=== PATIENT | male | born 1970 | race Caucasian/White ===

== ENCOUNTER 2016-07-17 16:06 | Emergency (ER) | payer OTHER ==
[2016-07-17 17:19] LABS: BASO # 0.1 K/uL (0.0-0.2); BASO % 1.1 % (0.0-2.0); EOS # 0.2 K/uL (0.0-0.7); EOS % 3.6 % (0.0-4.0); HEMATOCRIT 46.2 % (35.0-51.0); LYMPH # 1.6 K/uL (1.0-4.3); LYMPH % 27.8 % (20.0-40.0); MEAN CELL VOLUME 91.4 fL (80.0-94.0); MEAN CORPUSCULAR HEMOGLOBIN 30.8 pg (27.0-31.0); MEAN CORPUSCULAR HGB CONC 33.7 g/dL (33.0-37.0); MEAN PLATELET VOLUME 7.7 fL (7.2-11.7); MONO # 0.7 K/uL (0.0-0.8); MONO % 11.9 % (0.0-10.0); RED CELL DISTRIBUTION WIDTH 13.5 % (11.5-14.5); WHITE BLOOD COUNT 5.6 K/uL (4.8-10.8)
[2016-07-17 17:23] LABS: RBC URINE 6 /hpf (0-3); URINE BACTERIA RARE (<OCC); URINE BILIRUBIN NEGATIVE (NEGATIVE); URINE BLOOD 1+ (NEGATIVE); URINE COLOR Yellow (YELLOW); URINE GLUCOSE (UA) NORMAL (Normal); URINE KETONE NEGATIVE (NEGATIVE); URINE LEUKOCYTE ESTERASE NEG Leu/uL (Negative); URINE PROTEIN 1+ mg/dL (NEGATIVE); URINE UROBILINOGEN NORMAL mg/dL (0.2-1.0); WBC URINE 2 /hpf (0-5)
[2016-07-17 17:31] LABS: CHLORIDE 94 mmol/L (98-107); SODIUM 137 mmol/L (132-148)
[2016-07-17 17:32] LABS: POTASSIUM 3.8 mmol/L (3.6-5.2)
[2016-07-17 17:34] LABS: ALB/GLOB RATIO 1.2 (1.0-2.1); ALKALINE PHOSPHATASE 58 U/L (38-126); ALT/SGPT 54 U/L (21-72); AST/SGOT 36 U/L (17-59); BILIRUBIN,TOTAL 0.7 mg/dL (0.2-1.3); BLOOD UREA NITROGEN 17 mg/dL (9-20); CARBON DIOXIDE 29 mmol/L (22-30); GFR AFRICAN-AMERICAN > 60; GLUCOSE,RANDOM 101 mg/dL (75-110); TOTAL PROTEIN 8.4 g/dL (6.3-8.3)
--- NOTE | 2016-07-17 17:36 | C.PDOC ---
History Of Present Illness Patient is a 46 year old male who presents to the ER with a complaint of nausea , vomiting, and diarrhea since 22:00 Saturday night. Patient states he has had multiple episodes since then. Patient reports having only diarrhea today and being able to tolerate small amount of fluids PO. Patient notes having sick contact with a roommate who had similar symptoms. Denies any abdominal pain, fever, or chills. Time Seen by Provider: 07/17/16 17:21 Chief Complaint (Nursing): Abdominal Pain History/Exam Limitations: no limitations Onset/Duration Of Symptoms: Days (since saturday night at 22:00) Current Symptoms Are (Timing): Still Present Context: Other (Sick contact with roommate) Severity: Mild Associated Symptoms: Nausea, Vomiting, Diarrhea. denies: Fever, Chills Past Medical History Reviewed: Historical Data, Nursing Documentation, Vital Signs Vital Signs: Last Vital Signs Temp 97.3 F L 07/17/16 16:17 Pulse 77 07/17/16 16:17 Resp 16 07/17/16 16:17 BP 105/77 07/17/16 16:17 Pulse Ox 95 07/17/16 18:49 Family History: States: Unknown Family Hx - Social History Hx Alcohol Use: No Hx Substance Use: No - Immunization History Hx Tetanus Toxoid Vaccination: No Hx Influenza Vaccination: No Hx Pneumococcal Vaccination: No Review Of Systems Constitutional: Negative for: Fever, Chills Gastrointestinal: Positive for: Nausea, Vomiting, Diarrhea. Negative for: Abdominal Pain Physical Exam - Physical Exam Appears: Well, Non-toxic Skin: Normal Color, Warm, Dry Head: Atraumatic, Normacephalic Oral Mucosa: Moist Chest: Symmetrical Cardiovascular: Rhythm Regular Respiratory: Normal Breath Sounds, No Rales, No Rhonchi, No Wheezing Gastrointestinal/Abdominal: Soft, No Tenderness Neurological/Psych: Oriented x3, Normal Speech, Normal Cognition ED Course And Treatment - Laboratory Results Result Diagrams: 07/17/16 17:14 07/17/16 17:14 O2 Sat by Pulse Oximetry: 95 (Room air) Pulse Ox Interpretation: Normal Progress Note: Pepcid IVP, Reglan IVPB, and IV fluids administered. Medical Decision Making Medical Decision Making: pt feeling much better, abdoomen soft, nod, nt. pt is thirsty, po challenge of mark al given. will d/c Disposition - Disposition Referrals: [facility] at [facility] [Outside] Disposition: HOME/ ROUTINE Disposition Time: 18:52 Condition: IMPROVED Additional Instructions: Drink increased fluids- water., tea, gatorade. Follow BRAT diet for 1-2 days- banana, rice, applesauce. Follow up with your doctor or in clinic in a few days. Take medicaitons as prescribed. Return to ER for any worsening symptoms. Prescriptions: Famotidine [Pepcid] 20 mg PO DAILY #14 tab Instructions: Gastroenteritis (ED) Forms: General Discharge Instructions, Work Excuse - Clinical Impression Clinical Impression: Gastroenteritis - Scribe Statement The provider has reviewed the documentation as recorded by the Scribe Toby Navarro All medical record entries made by the Scribe were at my direction and personally dictated by me. I have reviewed the chart and agree that the record accurately reflects my personal performance of the history, physical exam, medical decision making, and the department course for this patient. I have also personally directed, reviewed, and agree with the discharge instructions and disposition.
[2016-07-17] MEDS ORDERED: Sodium Chloride 0.9% 1,000 ML IV ONE (17:37)
[2016-07-17] MEDS ORDERED: Sodium Chloride 0.9% 1,000 ML ONE (17:53)
[2016-07-17 19:05] VITALS: BP 97/64; PULSE 74; RESP 18; TEMP 97.4; O2SAT 98
== END 2016-07-17 19:13 | disposition home or self-care (01) ==
LOC: C.ER 16:06
DX: K52.9 Noninfective gastroenteritis and colitis, unspecified (principal)
CPT/HCPCS: 80053; 81001; 83690; 85025; 96361; 96374; 96375; 99285; J2765; J7040

== ENCOUNTER 2016-08-23 18:25 | Emergency (ER) | payer OTHER ==
[2016-08-23 18:32] VITALS: TEMP 97.5; O2SAT 99
--- NOTE | 2016-08-23 19:48 | C.PDOC ---
History Of Present Illness 46 y/o male c/o 3 day hx of dry cough, runny nose, headache (now resolved), no fever or chills, no cp or sob. no sick contacts. Time Seen by Provider: 08/23/16 19:28 Chief Complaint (Nursing): Cough, Cold, Congestion History Per: Patient History/Exam Limitations: no limitations Onset/Duration Of Symptoms: Days (3) Current Symptoms Are (Timing): Still Present Sick Contacts (Context): None Ear Symptoms: Bilateral: None Past Medical History Reviewed: Historical Data, Nursing Documentation, Vital Signs Vital Signs: Last Vital Signs Temp 97.5 F L 08/23/16 18:29 Pulse 90 08/23/16 18:29 Resp 18 08/23/16 18:29 BP 152/72 H 08/23/16 18:29 Pulse Ox 99 08/23/16 18:29 - Medical History PMH: No Chronic Diseases, Bronchitis Surgical History: No Surg Hx Family History: States: Unknown Family Hx - Social History Hx Tobacco Use: Yes Hx Alcohol Use: No Hx Substance Use: No - Immunization History Hx Tetanus Toxoid Vaccination: No Hx Influenza Vaccination: No Hx Pneumococcal Vaccination: No Review Of Systems Constitutional: Negative for: Fever, Chills ENT: Positive for: Nose Discharge, Nose Congestion. Negative for: Ear Pain, Ear Discharge, Throat Swelling Cardiovascular: Negative for: Chest Pain, Palpitations Respiratory: Positive for: Cough. Negative for: Shortness of Breath, Sputum Gastrointestinal: Negative for: Nausea, Vomiting, Abdominal Pain Physical Exam - Physical Exam Appears: Non-toxic, No Acute Distress Skin: Normal Color, Warm, Dry Head: Atraumatic, Normacephalic Eye(s): bilateral: Normal Inspection Ear(s): Left: Normal, Right: TM Obscured By Wax Nose: Discharge, Other (boggy mucosa) Oral Mucosa: Moist Tongue: Normal Appearing Lips: Normal Appearing Neck: Normal ROM Chest: Symmetrical, No Deformity, No Tenderness Cardiovascular: Rhythm Regular, No Murmur Respiratory: Normal Breath Sounds, No Accessory Muscle Use, No Rales, No Rhonchi , No Wheezing Neurological/Psych: Oriented x3, Normal Speech, Normal Cognition ED Course And Treatment O2 Sat by Pulse Oximetry: 99 Medical Decision Making Medical Decision Makin46 y/o male with seasonal allergy symptoms; will d/c with claritin and pmd/ clinic f/u Disposition Counseled Patient/Family Regarding: Diagnosis, Need For Followup, Rx Given - Disposition Referrals: [facility] at [facility] [Outside] Disposition: HOME/ ROUTINE Disposition Time: 19:52 Condition: GOOD Additional Instructions: FOllow up in medical clinic in a few days/ . Tylenol or Motrin for pain. Take Claritin daily. Prescriptions: Loratadine [Claritin] 10 mg PO DAILY #14 tab Instructions: Allergic Rhinitis (ED) Forms: General Discharge Instructions - Clinical Impression Clinical Impression: Seasonal allergies
[2016-08-23 20:04] VITALS: BP 128/72; PULSE 88; RESP 20
== END 2016-08-23 20:03 | disposition home or self-care (01) ==
LOC: C.ER 18:25
DX: J30.2 Other seasonal allergic rhinitis (principal)

== ENCOUNTER 2017-03-15 18:33 | Emergency (ER) | payer SELFPAY ==
[2017-03-15 19:27] VITALS: BP 104/68; PULSE 88; RESP 18; TEMP 97.9; O2SAT 98
--- NOTE | 2017-03-15 19:39 | C.PDOC ---
History Of Present Illness 47 year old male presents to ED with complaints of painful lump to right underarm for one week. The area has grown in size. Denies fever or drainage. Time Seen by Provider: 03/15/17 19:35 Chief Complaint (Nursing): Abnormal Skin Integrity History Per: Patient History/Exam Limitations: no limitations Onset/Duration Of Symptoms: Days Location Of Injury: Right: Arm (underarm lump) Quality Of Symptoms: Painful Past Medical History Reviewed: Historical Data, Nursing Documentation, Vital Signs Vital Signs: Last Vital Signs Temp 97.9 F 03/15/17 19:24 Pulse 88 03/15/17 19:24 Resp 18 03/15/17 19:24 BP 104/68 03/15/17 19:24 Pulse Ox 98 03/15/17 20:35 - Medical History PMH: Bronchitis Family History: States: Unknown Family Hx - Social History Hx Tobacco Use: Yes Hx Alcohol Use: Yes Hx Substance Use: No - Immunization History Hx Tetanus Toxoid Vaccination: Yes Hx Influenza Vaccination: No Hx Pneumococcal Vaccination: No Review Of Systems Except As Marked, All Systems Reviewed And Found Negative. Skin: Positive for: Other (lump to axilla) Physical Exam - Physical Exam Appears: Well, Non-toxic, No Acute Distress Skin: Warm, Dry, Other (tender 0.5x0.5cm erythematous indurated mass to right mid axilla, no fluctuance or drainage) Head: Atraumatic, Normacephalic Eye(s): bilateral: Normal Inspection Neck: Normal ROM Chest: Symmetrical Cardiovascular: Rhythm Regular, No Murmur Respiratory: Normal Breath Sounds, No Wheezing Extremity: Bilateral: Atraumatic, Normal Color And Temperature, Normal ROM Neurological/Psych: Oriented x3, Normal Speech ED Course And Treatment O2 Sat by Pulse Oximetry: 98 Medical Decision Making Medical Decision Making: patient with indurated small nodule to right axilla, area is not fluctuant and unable to I&D at this time. Recommend warm compress to area. Bactrim PO given. Disposition Counseled Patient/Family Regarding: Diagnosis, Need For Followup, Rx Given - Disposition Referrals: [facility]Outside[facility] Disposition: HOME/ ROUTINE Disposition Time: 19:39 Condition: STABLE Additional Instructions: Follow up with your primary medical doctor or clinic in 2-5 days for further evaluation. Take medications as prescribed. Return to the emergency department at any time if symptoms persist or worsen. Prescriptions: Sulfamethoxazole/Trimethoprim [Bactrim DS 800 mg-160 mg] 1 tab PO BID #14 tab Instructions: Furunculosis and Carbunculosis (ED) Forms: [email or web address] (Kiswahili), Work Excuse - POA Present On Arrival: None - Clinical Impression Clinical Impression: Axillary abscess
[2017-03-15] MEDS ORDERED: Tmp-Smz 800 mg-160 mg DS Tab PO STA (19:41)
[2017-03-15] MEDS ORDERED: Tmp-Smz 800 mg-160 mg DS Tab ONE (19:46)
== END 2017-03-15 19:52 | disposition home or self-care (01) ==
LOC: C.ER 18:33
DX: L02.411 Cutaneous abscess of right axilla (principal)

== ENCOUNTER 2017-05-28 10:28 | Emergency (ER) | payer SELFPAY ==
[2017-05-28 10:52] VITALS: TEMP 98.6
[2017-05-28] MEDS ORDERED: Albuterol-Ipratrop 3 mg / 0.5 (3 ml) UD IH STA (11:35)
[2017-05-28] MEDS ORDERED: Promethazine/Cod 6.25mg-10mg/5ml Syr UD PO STA (11:36)
[2017-05-28] MEDS ORDERED: Albuterol-Ipratrop 3 mg / 0.5 (3 ml) UD ONE (11:40)
[2017-05-28] MEDS ORDERED: Promethazine/Cod 6.25mg-10mg/5ml Syr UD ONE (11:43)
--- NOTE | 2017-05-28 11:50 | RAD ---
HISTORY: Cough COMPARISON: None available. TECHNIQUE: Chest PA and lateral FINDINGS: LUNGS: No focal consolidation. Please note that chest x-ray has limited sensitivity for the detection of pulmonary masses. PLEURA: No significant pleural effusion identified. No definite pneumothorax . CARDIOVASCULAR: The cardiomediastinal silhouette appears within normal limits of size. OSSEOUS STRUCTURES: No acute osseous abnormality identified. VISUALIZED UPPER ABDOMEN: Unremarkable. OTHER FINDINGS: None. IMPRESSION: No focal consolidation, significant pleural effusion, or definite pneumothorax identified.
--- NOTE | 2017-05-28 12:12 | C.PDOC ---
History Of Present Illness 47 year old male, with social history of smoking, presents to the ED for evaluation of cold symptoms associated with body aches, dizziness, and cough that is productive of yellow sputum. Patient reports experiencing mild shortness of breath last night. Otherwise, he denies high fever, chills, headache, chest pain, dyspnea, and wheezing. Time Seen by Provider: 05/28/17 11:22 Chief Complaint (Nursing): Flu-like Symptoms History Per: Patient History/Exam Limitations: no limitations Onset/Duration Of Symptoms: Hrs Current Symptoms Are (Timing): Still Present Associated Symptoms: Cough, Sputum (yellow). denies: Fever, Chills Additional History Per: Patient Past Medical History Reviewed: Historical Data, Nursing Documentation, Vital Signs Vital Signs: Last Vital Signs Temp 98.6 F 05/28/17 10:50 Pulse 82 05/28/17 12:35 Resp 16 05/28/17 12:35 BP 139/85 05/28/17 12:35 Pulse Ox 98 05/28/17 12:35 - Medical History PMH: Bronchitis Family History: States: Unknown Family Hx - Social History Hx Tobacco Use: Yes Hx Alcohol Use: Yes Hx Substance Use: No - Immunization History Hx Tetanus Toxoid Vaccination: Yes Hx Influenza Vaccination: No Hx Pneumococcal Vaccination: No Review Of Systems Constitutional: Negative for: Fever, Chills Cardiovascular: Negative for: Chest Pain Respiratory: Positive for: Cough, Shortness of Breath, Sputum (yellow ). Negative for: SOB with Excertion Gastrointestinal: Negative for: Abdominal Pain Musculoskeletal: Positive for: Other Physical Exam - Physical Exam Appears: Non-toxic, No Acute Distress Skin: Normal Color, Warm, Dry Head: Atraumatic, Normacephalic Eye(s): bilateral: Normal Inspection Ear(s): Bilateral: Normal Nose: Normal, No Discharge Oral Mucosa: Moist Throat: Normal, No Erythema, No Exudate Neck: Supple Chest: Symmetrical, No Deformity, No Tenderness Cardiovascular: Rhythm Regular, No Murmur Respiratory: No Rales, No Rhonchi, Wheezing (scattered, right basilar ) Extremity: Normal ROM, Capillary Refill (less than 2 seconds ) Neurological/Psych: Oriented x3, Normal Speech, Normal Cognition Gait: Steady ED Course And Treatment O2 Sat by Pulse Oximetry: 99 (on RA) Pulse Ox Interpretation: Normal - Radiology CXR: Interpreted by Me, Viewed By Me, Read By Radiologist CXR Interpretation: Yes: No Acute Disease Progress Note: Albuterol INH, Promethazine/Codeine PO, Zithromax PO, and Prednisone PO administered. On re-evaluation, pt is afebrile, hemodynamicaly stable. NOn-toxic. PulsEOx 99% RA. ENT: no acute findings. neck: Supple, (- ) meningeal sign. Lungs: CTA B/L, BS equal B/L. Abd: benign, (-) guarding, (- ) rebound. Neurologicaly intact. CXR review, normal study. Pt has clinical findings c/w bronchitis. Pt advised. ref. to f/u with PMD in 2-3 days for re- eavl. retur if any new changes. Disposition Counseled Patient/Family Regarding: Studies Performed, Diagnosis, Need For Followup - Disposition Referrals: [facility] at [facility] [Outside] Disposition: HOME/ ROUTINE Disposition Time: 12:12 Condition: STABLE Additional Instructions: ENCOURAGE FLUIDS TAKE MEDICATION PRESCRIBED FOLLOW UP WITH PMD IN 2-3 DAYS FOR RE-EVALUATION. RETURN TO ED IF ANY WORSENING OR NEW CHANGES. 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 - Scribe Statement The provider has reviewed the documentation as recorded by the Scribe (Janine Yusuf) All medical record entries made by the Scribe were at my direction and personally dictated by me. I have reviewed the chart and agree that the record accurately reflects my personal performance of the history, physical exam, medical decision making, and the department course for this patient. I have also personally directed, reviewed, and agree with the discharge instructions and disposition.
[2017-05-28 12:36] VITALS: BP 139/85; PULSE 82; RESP 16
[2017-05-28 12:42] VITALS: O2SAT 99
== END 2017-05-28 12:35 | disposition home or self-care (01) ==
LOC: C.ER 10:28
DX: J40 Bronchitis, not specified as acute or chronic (principal)

== ENCOUNTER 2018-01-29 12:49 | Emergency (ER) | payer OTHER ==
[2018-01-29 13:04] VITALS: BP 125/76; PULSE 70; RESP 18; TEMP 98.8; O2SAT 97
--- NOTE | 2018-01-29 14:55 | C.PDOC ---
History Of Present Illness 47 year old female presents to the ED for evaluation of a piece of tissue stuck in the left ear for the last few days. Patient notes he had trouble hearing due to the foreign body. Denies fever, vomiting, and any other associated symptoms. Time Seen by Provider: 01/29/18 13:15 Chief Complaint (Nursing): ENT Problem History Per: Patient History/Exam Limitations: None Onset/Duration Of Symptoms: Hrs Current Symptoms Are (Timing): Still Present Past Medical History Reviewed: Historical Data, Nursing Documentation, Vital Signs Vital Signs: Last Vital Signs Temp 98.8 F 01/29/18 13:01 Pulse 70 01/29/18 13:01 Resp 18 01/29/18 13:01 BP 125/76 01/29/18 13:01 Pulse Ox 97 01/29/18 13:01 - Medical History PMH: Bronchitis Family History: States: Unknown Family Hx - Social History Hx Tobacco Use: Yes Hx Alcohol Use: No Hx Substance Use: No - Immunization History Hx Tetanus Toxoid Vaccination: No Hx Influenza Vaccination: No Hx Pneumococcal Vaccination: No Review Of Systems Except As Marked, All Systems Reviewed And Found Negative. Constitutional: Negative for: Fever ENT: Positive for: Other (Foreign body in the left ear. ) Gastrointestinal: Negative for: Vomiting Physical Exam - Physical Exam Appears: Non-toxic Skin: Normal Color, Warm, Dry Head: Atraumatic, Normacephalic Ear(s): Left: Other (Foreign body in the left ear. ) Neck: Normal ROM, Supple Neurological/Psych: Oriented x3, Normal Speech Gait: Steady ED Course And Treatment O2 Sat by Pulse Oximetry: 97 (RA) Pulse Ox Interpretation: Normal Medical Decision Making Medical Decision Making: Progress/Update: Foreign body removed from the left ear with alligator forceps. Re-evaluation: Re-examination of the left ear was unremarkable, no erythema to the ear canal or tympanic membrane. Patient stable for discharge home. Disposition - Disposition Disposition: HOME/ ROUTINE Disposition Time: 13:25 Condition: GOOD Additional Instructions: NICHOLAS MCGHEE, thank you for letting us take care of you today. Your provider was Lila Jasmine MD and you were treated for FOREIGN OBJECT IN EAR. The emergency medical care you received today was directed at your acute symptoms. If you were prescribed any medication, please fill it and take as directed. It may take several days for your symptoms to resolve. Return to the Emergency Department if your symptoms worsen, do not improve, or if you have any other problems. Please contact your doctor or call one of the physicians/clinics you have been referred to that are listed on the Patient Visit Information form that is included in your discharge packet. Bring any paperwork you were given at discharge with you along with any medications you are taking to your follow up visit. Our treatment cannot replace ongoing medical care by a primary care provider outside of the emergency department. Thank you for allowing the [facility] team to be part of your care today. If you had an X-Ray or CT scan: A Radiologist will review the ED reading if any change in treatment is needed we will contact you. If you had a blood, urine, or wound culture: It will take several days for the results, if any change in treatment is needed we will contact you. If you had an STI test: It will take 48 hours for the results. Please call after 1 week if you have not heard back. Instructions: Removing Objects Stuck in the Ear Forms: [employer] (Estonian) - Clinical Impression Clinical Impression: Ear foreign body - Scribe Statement The provider has reviewed the documentation as recorded by the Scribe (Virginia Montez) Provider Attestation: All medical record entries made by the Scribe were at my direction and personally dictated by me. I have reviewed the chart and agree that the record accurately reflects my personal performance of the history, physical exam, medical decision making, and the department course for this patient. I have also personally directed, reviewed, and agree with the discharge instructions and disposition.
== END 2018-01-29 13:25 | disposition home or self-care (01) ==
LOC: C.ER 12:49
DX: T16.2XXA Foreign body in left ear, initial encounter (principal); X58.XXXA Exposure to other specified factors, initial encounter; Y92.9 Unspecified place or not applicable

== ENCOUNTER 2018-03-14 15:53 | Emergency (ER) | payer SELFPAY ==
[2018-03-14 16:16] VITALS: BMI 25.8
--- NOTE | 2018-03-14 17:17 | C.PDOC ---
History Of Present Illness 48 year old male presents to the emergency department with complaints of left sided upper canine tooth pain, as well as swelling to the gum since the last two days. Patient reports that the tooth is due for extraction but he has not had that procedure performed yet. Patient reports that he has a dental appointment for Saturday03-17-18, and that he has been taking Motrin 400mg every hour with no relief. Time Seen by Provider: 03/14/18 16:48 Chief Complaint (Nursing): Dental Pain History Per: Patient History/Exam Limitations: no limitations Onset/Duration Of Symptoms: Days (2) Current Symptoms Are (Timing): Still Present Quality: Positive for: "Pain" Past Medical History Reviewed: Historical Data, Nursing Documentation, Vital Signs Vital Signs: Last Vital Signs Temp 98.1 F 03/14/18 16:08 Pulse 79 03/14/18 16:08 Resp 18 03/14/18 16:08 BP 134/99 H 03/14/18 16:08 Pulse Ox 99 03/14/18 16:08 - Medical History PMH: Asthma, Bronchitis Surgical History: No Surg Hx Family History: States: No Known Family Hx - Social History Hx Tobacco Use: Yes Hx Alcohol Use: No Hx Substance Use: No - Immunization History Hx Tetanus Toxoid Vaccination: No Hx Influenza Vaccination: No Hx Pneumococcal Vaccination: No Review Of Systems Constitutional: Negative for: Fever, Chills ENT: Positive for: Mouth Pain (dental), Mouth Swelling (gingival) Physical Exam - Physical Exam Appears: Non-toxic, In Acute Distress (mildly uncomfortable) Skin: Normal Color, Warm, Dry Head: Atraumatic, Normacephalic Eye(s): bilateral: Normal Inspection, PERRL, EOMI Nose: Normal Oral Mucosa: Moist Teeth: No Normal Dentition (missing upper left incisor, ), Caries (to the left upper canine), Tender To Palpation (to the left upper canine) Gingiva: Swelling (over the left upper canine), Tender, No Other (fluctuance) Neck: Normal, Supple Chest: Symmetrical, No Tenderness Neurological/Psych: Oriented x3, Normal Speech, Normal Cognition ED Course And Treatment O2 Sat by Pulse Oximetry: 99 (RA) Pulse Ox Interpretation: Normal Medical Decision Making Medical Decision Making: Plan: Cleocin 300mg PO Toradol 30mg PO Disposition - Disposition Disposition: HOME/ ROUTINE Disposition Time: 17:31 Condition: GOOD Additional Instructions: Please take medications as prescribed. Follow up with dentist on Saturday as scheduled. May also try Anbesol to painful area per directions. Alternate Tylenol and ibuprofen. Prescriptions: Acetaminophen [Tylenol 325mg tab] 650 mg PO Q4 #50 tab Clindamycin [Cleocin] 300 mg PO Q6 #28 cap Ibuprofen [Motrin] 600 mg PO TID #30 tab Instructions: Tooth Decay, Adult (DC) Forms: General Discharge Instructions, [facility] (Uzbek), Work Excuse - Clinical Impression Clinical Impression: Dental caries - PA / WELFARE ADMINISTRATOR / Resident Statement MD/DO has reviewed & agrees with the documentation as recorded. - Scribe Statement The provider has reviewed the documentation as recorded by the Scribe All medical record entries made by the Scribe were at my direction and personally dictated by me. I have reviewed the chart and agree that the record accurately reflects my personal performance of the history, physical exam, medical decision making, and the department course for this patient. I have also personally directed, reviewed, and agree with the discharge instructions and disposition.
[2018-03-14 17:58] VITALS: BP 110/67; PULSE 65; RESP 19; TEMP 97.8
[2018-03-15 21:16] VITALS: O2SAT 99
== END 2018-03-14 17:57 | disposition home or self-care (01) ==
LOC: C.ER 15:53
DX: K02.9 Dental caries, unspecified (principal); Z72.0 Tobacco use
CPT/HCPCS: 96372; 99283; J1885

== ENCOUNTER 2018-04-11 16:57 | Emergency (ER) | payer OTHER ==
[2018-04-11 17:38] VITALS: RESP 20
[2018-04-11] MEDS ORDERED: Tmp-Smz 800 mg-160 mg DS Tab PO STA (17:54)
--- NOTE | 2018-04-11 17:57 | C.PDOC ---
History Of Present Illness 48 y/o male presents to the ED complaining of 1 week of redness and swelling to right lower jaw area. Patient reports the area has been gradually growing. It is painful to touch and red. He denies any direct injury. Otherwise denies any fever, chills, dental pain, or difficulty breathing. Time Seen by Provider: 04/11/18 17:36 Chief Complaint (Nursing): Abnormal Skin Integrity History Per: Patient History/Exam Limitations: no limitations Onset/Duration Of Symptoms: Days Current Symptoms Are (Timing): Still Present Past Medical History Reviewed: Historical Data, Nursing Documentation, Vital Signs Vital Signs: Last Vital Signs Temp 98.2 F 04/11/18 17:22 Pulse 83 04/11/18 17:22 Resp 20 04/11/18 17:22 BP 135/74 04/11/18 17:22 Pulse Ox 98 04/11/18 17:22 - Medical History PMH: Asthma, Bronchitis Family History: States: Unknown Family Hx - Social History Hx Tobacco Use: Yes Hx Alcohol Use: No Hx Substance Use: No - Immunization History Hx Tetanus Toxoid Vaccination: No Hx Influenza Vaccination: No Hx Pneumococcal Vaccination: No Review Of Systems Except As Marked, All Systems Reviewed And Found Negative. Constitutional: Negative for: Fever, Chills ENT: Positive for: Other (Facial/jaw swelling and redness). Negative for: Throat Pain, Throat Swelling Gastrointestinal: Negative for: Nausea, Vomiting Physical Exam - Physical Exam Appears: Non-toxic, No Acute Distress Skin: Normal Color, Warm, Dry Head: Atraumatic, Normacephalic, Other (erythematous indurated lesion to the body of right mandible, no fluctuance, submandibular spaces soft) Eye(s): bilateral: Normal Inspection, PERRL, EOMI Oral Mucosa: Moist Neck: Normal ROM, No Midline Cervical Tenderness, Supple Chest: Symmetrical Cardiovascular: Rhythm Regular, No Murmur Respiratory: Normal Breath Sounds, No Rales, No Rhonchi, No Wheezing Extremity: Bilateral: Atraumatic, Normal ROM Pulses: Left Radial: Normal, Right Radial: Normal Neurological/Psych: Oriented x3, Normal Speech ED Course And Treatment O2 Sat by Pulse Oximetry: 98 (RA) Pulse Ox Interpretation: Normal Medical Decision Making Medical Decision Making: Impression: Early abscess Plan: Given PO motrin and initial dose of antibiotic. Will start patient on Bactrim and advise to apply warm compress. Disposition Counseled Patient/Family Regarding: Diagnosis, Need For Followup, Rx Given - Disposition Referrals: [facility] [Outside] Disposition: HOME/ ROUTINE Disposition Time: 18:00 Condition: STABLE Additional Instructions: follow up with your doctor within 2 days call to make an appointment take medications as prescribed return to ER if symptoms worsens or progress warm compresses Prescriptions: Sulfamethoxazole/Trimethoprim [Bactrim DS 800 mg-160 mg] 1 tab PO BID #20 tab Instructions: Skin Abscess Forms: General Discharge Instructions, [facility] (Malay), Work Excuse - Clinical Impression Clinical Impression: Abscess - Scribe Statement The provider has reviewed the documentation as recorded by the Wilma Fletcher Provider Attestation: All medical record entries made by the Wilma were at my direction and personally dictated by me. I have reviewed the chart and agree that the record accurately reflects my personal performance of the history, physical exam, medical decision making, and the department course for this patient. I have also personally directed, reviewed, and agree with the discharge instructions and disposition.
[2018-04-11] MEDS ORDERED: Tmp-Smz 800 mg-160 mg DS Tab ONE (18:22)
[2018-04-11 18:24] VITALS: BP 120/78; PULSE 78; TEMP 98
[2018-04-11 20:12] VITALS: O2SAT 98
== END 2018-04-11 18:22 | disposition home or self-care (01) ==
LOC: C.ER 16:57
DX: L02.01 Cutaneous abscess of face (principal)